=== PATIENT | male | born 1980 | race Caucasian/White ===

== ENCOUNTER → 2017-03-18 | Outpatient (CLI) | payer BC ==
[~2017-03-18] MED LIST: DOSS PO; EXCEDRIN MIGRA1 EACH PO; IBUPROFEN800 MG PO; NAPROSYN EC 50500 MG PO; NORCO 7.5-3251 EACH PO; ZOFRAN 4 MG TAB4 MG PO
== END ==
LOC: KOH-I 11:29
DX: M25.561 Pain in right knee (principal); M17.11 Unilateral primary osteoarthritis, right knee; Z87.39 Personal history of other diseases of the musculoskeletal system and connective tissue; Z98.890 Other specified postprocedural states
CPT/HCPCS: 73562

== ENCOUNTER → 2017-04-08 | Outpatient (CLI) | payer BC | LOC: KOH-I 08:00 | DX: S83.241A Other tear of medial meniscus, current injury, right knee, initial encounter (principal); S83.411A Sprain of medial collateral ligament of right knee, initial encounter | CPT/HCPCS: 73721 ==

== ENCOUNTER → 2017-05-07 | Day surgery (SDC) | payer BC | END | disposition home or self-care (01) | LOC: OR 11:41 | PROVIDERS: Orthopaedic Surgery | PROC: 0SBC4ZZ Excision of Right Knee Joint, Percutaneous Endoscopic Approach (ICD-10-PCS; principal; 2017-05-07 13:00) | DX: S83.231A Complex tear of medial meniscus, current injury, right knee, initial encounter (principal); S83.511A Sprain of anterior cruciate ligament of right knee, initial encounter; M19.90 Unspecified osteoarthritis, unspecified site; K21.9 Gastro-esophageal reflux disease without esophagitis; G43.909 Migraine, unspecified, not intractable, without status migrainosus; Z79.1 Long term (current) use of non-steroidal anti-inflammatories (NSAID); Z79.899 Other long term (current) drug therapy; X58.XXXA Exposure to other specified factors, initial encounter | CPT/HCPCS: C1713; J0690; J1885; J2250; J2405; J2710; J3010; J7120 ==

== ENCOUNTER → 2021-01-01 | Outpatient (CLI) | payer BC, OTHER ==
[~2021-01-01] MED LIST changes: +AZITHROMYCIN250 MG PO; +BENZONATATE100 MG PO; +BUDESONIDE0.5 MG/2 M NEB; +DEXAMETHASONE6 MG PO; +DOXYCYCLINE HY100 MG PO; +IPRAT-ALBUT 0.5-3 ML NEB; +PREDNISONE20 MG PO; +PROTONIX 40 MG40 M1 PO; +ROBITUSSIN100 MG/5 M PO; +VENTOLIN HFA 66.7 GM INH; +VITAMIN C250 MG PO; +ZINC SULFATE220 M1 PO
== END ==
LOC: LAB 23:11
DX: U07.1 COVID-19 (principal)
CPT/HCPCS: U0002

== ENCOUNTER 2021-01-08 15:23 | Inpatient (IN) | payer BC, OTHER ==
[~2021-01-08] VITALS: Ht 177.8 cm; Wt 136.1 kg
[~2021-01-08 15:23] MED LIST changes: -AZITHROMYCIN250 MG PO; -BENZONATATE100 MG PO; -BUDESONIDE0.5 MG/2 M NEB; -DEXAMETHASONE6 MG PO; -DOXYCYCLINE HY100 MG PO; -IPRAT-ALBUT 0.5-3 ML NEB; -PREDNISONE20 MG PO; -PROTONIX 40 MG40 M1 PO; -ROBITUSSIN100 MG/5 M PO; -VENTOLIN HFA 66.7 GM INH; -VITAMIN C250 MG PO; -ZINC SULFATE220 M1 PO
[2021-01-08 17:57] LABS: HEMOGLOBIN 15.3 gm/dl (14.0-17.5); RED BLOOD COUNT 4.97 M/UL (4.20-5.50); WHITE BLOOD COUNT 4.8 K/UL (4.5-11.0)
[2021-01-08 18:26] LABS: BUN/CREATININE RATIO 11 (0-10)
[2021-01-08] MEDS ORDERED: AZITHROMYCIN250 MG PO (20:33)
[2021-01-08] MEDS ORDERED: PREDNISONE20 MG PO (20:34)
[2021-01-08] MEDS ORDERED: VENTOLIN HFA 66.7 GM INH (20:36)
[2021-01-09 04:14] LABS: WHITE BLOOD COUNT 4.1 K/UL (4.5-11.0)
[2021-01-09 04:23] LABS: BUN/CREATININE RATIO 14 (0-10)
[2021-01-09 04:27] LABS: HEMOGLOBIN 13.3 gm/dl (14.0-17.5); RED BLOOD COUNT 4.42 M/UL (4.20-5.50)
[2021-01-10 04:51] LABS: HEMOGLOBIN 13.5 gm/dl (14.0-17.5); RED BLOOD COUNT 4.51 M/UL (4.20-5.50); WHITE BLOOD COUNT 3.5 K/UL (4.5-11.0)
[2021-01-10 05:12] LABS: BUN/CREATININE RATIO 17 (0-10)
[2021-01-11 03:48] LABS: HEMOGLOBIN 13.3 gm/dl (14.0-17.5); RED BLOOD COUNT 4.46 M/UL (4.20-5.50); WHITE BLOOD COUNT 4.7 K/UL (4.5-11.0)
[2021-01-11 06:11] LABS: BUN/CREATININE RATIO 15 (0-10)
[2021-01-12 04:20] LABS: HEMOGLOBIN 13.5 gm/dl (14.0-17.5); RED BLOOD COUNT 4.48 M/UL (4.20-5.50)
[2021-01-12 04:40] LABS: BUN/CREATININE RATIO 17 (0-10)
[2021-01-13 02:46] LABS: HEMOGLOBIN 13.5 gm/dl (14.0-17.5); RED BLOOD COUNT 4.51 M/UL (4.20-5.50)
[2021-01-13 02:47] LABS: WHITE BLOOD COUNT 7.7 K/UL (4.5-11.0)
[2021-01-13 03:06] LABS: BUN/CREATININE RATIO 16 (0-10)
[2021-01-13] MEDS ORDERED: PROTONIX 40 MG40 M1 PO (12:24)
[2021-01-13] MEDS ORDERED: BENZONATATE100 MG PO (12:24)
[2021-01-13] MEDS ORDERED: ROBITUSSIN100 MG/5 M PO (12:24)
[2021-01-13] MEDS ORDERED: ZINC SULFATE220 M1 PO (12:24)
[2021-01-13] MEDS ORDERED: BUDESONIDE0.5 MG/2 M NEB (12:24)
[2021-01-13] MEDS ORDERED: IPRAT-ALBUT 0.5-3 ML NEB (12:24)
[2021-01-13] MEDS ORDERED: VITAMIN C250 MG PO (12:24)
[2021-01-13] MEDS ORDERED: DEXAMETHASONE6 MG PO (12:26)
[2021-01-13] MEDS ORDERED: DOXYCYCLINE HY100 MG PO (12:26)
== END 2021-01-13 15:34 | disposition home or self-care (01) | DRG 177 ==
LOC: ER1 15:23 → M/S 20:11 → CDU 20:11 → M/S 23:52
PROVIDERS: Internal Medicine; Physician Assistant; ADMIT Internal Medicine
PROC: 8E0ZXY6 Isolation (ICD-10-PCS; principal; 2021-01-08)
PROC: XW13325 Transfusion of Convalescent Plasma (Nonautologous) into Peripheral Vein, Percutaneous Approach, New Technology Group 5 (ICD-10-PCS; 2021-01-08)
PROC: XW033E5 Introduction of Remdesivir Anti-infective into Peripheral Vein, Percutaneous Approach, New Technology Group 5 (ICD-10-PCS; 2021-01-08)
DX: U07.1 COVID-19 (principal); J12.82 Pneumonia due to coronavirus disease 2019; J96.01 Acute respiratory failure with hypoxia; J15.9 Unspecified bacterial pneumonia; Z68.41 Body mass index [BMI] 40.0-44.9, adult; E66.9 Obesity, unspecified; Z79.899 Other long term (current) drug therapy; G47.33 Obstructive sleep apnea (adult) (pediatric); Z87.891 Personal history of nicotine dependence; K76.0 Fatty (change of) liver, not elsewhere classified; Z82.49 Family history of ischemic heart disease and other diseases of the circulatory system; R03.0 Elevated blood-pressure reading, without diagnosis of hypertension
CPT/HCPCS: 36415; 36600; 71045; 80053; 82550; 82553; 82728; 82803; 83036; 83605; 83615; 83735; 83874; 84484; 85025; 85379; 85610; 86140; 86900; 86901; 86927; 87040; 93005; 94640; 94664; 94760; 96365; 96366; 96372; 96375; 96376; 99285; J0696; J1100; J1650; J1885; J2405; J7030; Q9967

== ENCOUNTER → 2022-05-14 | Outpatient (CLI) | payer BC ==
[~2022-05-14] MED LIST changes: +AZITHROMYCIN250 MG PO; +BENZONATATE100 MG PO; +BUDESONIDE0.5 MG/2 M NEB; +DEXAMETHASONE6 MG PO; +DOXYCYCLINE HY100 MG PO; +IPRAT-ALBUT 0.5-3 ML NEB; +PREDNISONE20 MG PO; +PROTONIX 40 MG40 M1 PO; +ROBITUSSIN100 MG/5 M PO; +VENTOLIN HFA 66.7 GM INH; +VITAMIN C250 MG PO; +ZINC SULFATE220 M1 PO
== END ==
LOC: EMI 15:02
DX: S83.207A Unspecified tear of unspecified meniscus, current injury, left knee, initial encounter (principal)
CPT/HCPCS: 73721